=== PATIENT | female | born 1985 | race Caucasian/White ===

== ENCOUNTER 2017-04-20 01:21 | Emergency (ER) | payer OTHER ==
[~2017-04-20] VITALS: Ht 157.5 cm; Wt 65.8 kg
--- NOTE | ~2017-04-20 | US61 ---
[facility] A Service of [facility] RADIOLOGY TEXT RESULTS PATIENT: AMY GONZALEZ LOCATION: [facility] : 81 UNIT #: [id number] AGE: [address]: Matt Walter MD SEX: F ORDER DR: [id number] [facility] [address] [facility] [place], [place] [address] [id number] MR#: [id number] Acc #: [id number] NAME: AMY GONZALEZ : 1985 SEX: F STUDY DATE/TIME: 04/20/2017 6:47 UNIT: TAMAR ROOM: STUDY DESCRIPTION: US /Mat <14Wk / Attending Physician: Matt Walter M.D. Ordering Physician: Anna Merrill Pa-C Primary Care Physician: Zari Uribe M.D. MEDICAL IMAGING REPORT This report is preliminary unless electronic signature is present EXAM Early ultrasound INDICATIONS Vaginal bleeding since 1 a.m. Patient in the early stage of . hCG is 1927. TECHNIQUE Transabdominal followed by transvaginal imaging was performed. FINDINGS The uterus appears normal on transabdominal imaging. The endometrial tissue is 11 mm in thickness. The right ovary is 3.8 cm in diameter and appears normal. The left ovary is 2.5 cm in diameter and appears normal. Then transvaginal imaging was performed. The uterus is 4.2 x 6.3 x 3.5 cm. The endometrial tissue is 13 mm in thickness. No intrauterine is identified. The ovaries appear normal and have normal flow. There is no free fluid. IMPRESSION 1. Minimal free fluid. 2. No intrauterine or evidence of ectopic identified. 3. Study is otherwise normal. Dictated by... Tanmay Schmidt M.D. THIS IS AN ELECTRONICALLY VERIFIED REPORT Tanmay Schmidt M.D. at 04/22/2017 6:15 AM [facility] A Service [facility] RADIOLOGY TEXT RESULTS PATIENT: AMY GONZALEZ LOCATION: [facility] : 81 UNIT #: [id number] AGE: [address]: Matt Walter MD SEX: F ORDER DR: Ghulam TD: 04/21/2017 09:24 JOB #: [id number] MEDICAL IMAGING REPORT Page 1 of 1 COPY
[2017-04-20 02:59] LABS: BASOPHIL% 0.7 % (0-2.5); EOSINOPHIL# 0.1 X10e3 (0-0.7); EOSINOPHIL% 2.5 % (0.0-7.0); HEMATOCRIT 34.3 % (35.0-45.0); HEMOGLOBIN 10.6 gm/dL (12.0-16.0); LYMPHOCYTE# 1.8 X10e3 (1.0-3.5); LYMPHOCYTE% 30.9 % (17.0-45.0); MEAN CELL VOLUME 76.5 FL (83-96); MEAN CORPUSCULAR HEMOGLOBIN 23.7 PG (28-34); MEAN PLATELET VOLUME 9.4 FL (6.5-11.5); MONOCYTE# 0.4 X10e3 (0-1.0); MONOCYTE% 6.2 % (3.0-12.0); NEUTROPHIL# 3.4 X10e3 (1.5-7.1); NEUTROPHIL% 59.7 % (40-75); PLATELET COUNT 154 X10e3 (140-420); RED BLOOD COUNT 4.49 X10e (3.90-5.30); RED CELL DISTRIBUTION WIDTH 14.4 % (11.0-15.5); WHITE BLOOD COUNT 5.7 X10e3 (4.0-10.5)
[2017-04-20 03:03] LABS: DIFF IND NO
[2017-04-20 03:16] LABS: URINE SOURCE CLEAN CATCH
[2017-04-20 03:32] LABS: URINE APPEARANCE CLEAR; URINE BILIRUBIN NEG (NEG); URINE BLOOD 2+ (NEG); URINE COLOR YELLOW; URINE GLUCOSE NEG (NEG); URINE KETONE NEG (NEG); URINE LEUKOCYTE ESTERASE NEG (NEG); URINE NITRATE NEG (NEG); URINE PH 5.5 (5-8); URINE PROTEIN NEG (NEG); URINE SPECIFIC GRAVITY 1.014 (1.003-1.035); URINE UROBILINOGEN 0.2 MG/DL (NEG)
[2017-04-20 03:51] LABS: URINE SQUAMOUS EPITHELIAL CELL OCCAS /[HPF]
[2017-04-20 03:52] LABS: CULTURE INDICATED? NO
== END 2017-04-20 08:09 | disposition home or self-care (01) ==
LOC: CED 01:21
PROVIDERS: Physician Assistant Medical
DX: O20.0 Threatened abortion (principal); Z90.49 Acquired absence of other specified parts of digestive tract; Z88.0 Allergy status to penicillin
CPT/HCPCS: 36415; 76801; 81003; 84702; 84703; 85025; 86900; 86901; 99284